=== PATIENT | male | born 1945 | race Caucasian/White ===

== ENCOUNTER 2020-10-26 21:01 | Emergency (ER) | payer MEDICARE, BC ==
[~2020-10-26] VITALS: Ht 182.9 cm; Wt 74.8 kg
--- NOTE | 2020-10-26 21:49 | NUR ---
Dr. Santiago at bedside for MSE.
[2020-10-26] MEDS ORDERED: FLUT16SP16 NS (21:57)
[2020-10-26] MEDS ORDERED: CEFU500T66 PO (21:57)
[2020-10-26] MEDS ORDERED: GUAI5SYR4 GT (21:57)
[2020-10-26 22:07] VITALS: BP 110/66
--- NOTE | 2020-10-26 22:07 | NUR ---
Patient discharged to home in stable condition. Written and verbal after care instructions given. Patient verbalizes understanding of instructions. Stressed follow up or return to ER for worsening s/s.
== END 2020-10-26 22:07 | disposition home or self-care (01) ==
LOC: ER 21:03
DX: J40 Bronchitis, not specified as acute or chronic (principal)
CPT/HCPCS: A4663